=== PATIENT | female | born 1960 | race African-American/Black ===

== ENCOUNTER 2017-01-15 10:28 | Inpatient (IN) | payer OTHER, MEDICAID ==
[~2017-01-15] VITALS: Ht 167.6 cm; Wt 93.9 kg
[~2017-01-15 10:28] MED LIST: ATOR20TA PO; METO-539 PO
[2017-01-15] MEDS ORDERED: LABETALOL 5MG/ML SYR 20 MG/4 ML SYRINGE IV PRN (11:15)
[2017-01-15] MEDS ORDERED: ASPIRIN 325MG EC TABLET PO ONE (11:30)
[2017-01-15 11:35] LABS: EOSINOPHILS % 2.2 % (0.0-5.0); HEMATOCRIT. 41.4 % (36.0-48.0); LYMPHOCYTES % 38.4 % (20.0-50.0); MEAN CORPUSCULAR HEMOGLOBIN 29.1 pg (28.0-32.0); MONOCYTES % 10.9 % (2.0-8.0); NEUTROPHILS % 47.5 % (40.0-76.0); RED BLOOD CELL COUNT 4.82 mill/uL (4.2-5.4); RED CELL DISTRIBUTION WIDTH 15.2 % (11.6-14.6)
[2017-01-15 11:38] LABS: PROTHROMBIN TIME 10.2 sec
[2017-01-15 11:48] LABS: CARBON DIOXIDE 29 mEq/L (21-32); CHLORIDE 107 mEq/L (98-107); ETHANOL BLOOD < 10 mg/dL; TROPONIN I 0.06 ng/mL (0.00-0.04)
[2017-01-15 12:33] LABS: CLARITY URINE CLEAR (CLEAR); COLOR URINE YELLOW (YELLOW); KETONES URINE NEGATIVE (NEGATIVE); LEUKOCYTE ESTERASE URINE NEGATIVE (NEGATIVE); NITRITE URINE NEGATIVE (NEGATIVE); OCCULT BLOOD URINE NEGATIVE (NEGATIVE); PROTEIN URINE NEGATIVE (NEGATIVE); SPECIFIC GRAVITY URINE 1.015 (1.005-1.030)
[2017-01-15 12:49] LABS: *AMPHETAMINES SCREEN URINE NEGATIVE (NEGATIVE); *BARBITURATES SCREEN URINE NEGATIVE (NEGATIVE); *BENZODIAZEPINES SCREEN URINE NEGATIVE (NEGATIVE); *COCAINE SCREEN URINE NEGATIVE (NEGATIVE); CANNABINOID URINE SCREEN NEGATIVE (NEGATIVE); METHADONE URINE SCREEN NEGATIVE (NEGATIVE); OPIATES URINE SCREEN NEGATIVE (NEGATIVE); PHENCYCLIDINE URINE SCREEN NEGATIVE (NEGATIVE)
[2017-01-15 13:16] LABS: PLATELET 245 x1000/uL (130-400)
[2017-01-15] MEDS ORDERED: HYDRALAZINE 20MG/ML VIAL IV ONE (14:30)
[2017-01-15] MEDS ORDERED: DIOVAN PO (16:33)
[2017-01-15] MEDS ORDERED: HYDROXYZINE 25 MG/ML IM ONE (18:00)
[2017-01-15] MEDS ORDERED: CLONIDINE 0.1MG TABLET PO PRN (20:00)
[2017-01-15] MEDS ORDERED: CLONIDINE 0.1MG TABLET PO SCH (20:00)
[2017-01-15] MEDS: LOSARTAN POTASSIUM 50 MG TABLET PO SCH (20:52)
[2017-01-15] MEDS: ENOXAPARIN 30MG/0.3ML SYR SUBCUT SCH (20:53)
[2017-01-15] MEDS: METOPROLOL TARTRATE 100MG TABLET PO SCH (22:07)
[2017-01-15] MEDS ORDERED: HYDROCODONE/ACETAMINOPHEN 5/325MG TABLET PO PRN (22:15)
[2017-01-16] MEDS: LOSARTAN POTASSIUM 50 MG TABLET PO SCH (08:19)
[2017-01-16] MEDS: ENOXAPARIN 30MG/0.3ML SYR SUBCUT SCH (08:20)
[2017-01-16] MEDS: METOPROLOL TARTRATE 100MG TABLET PO SCH (08:20)
[2017-01-16 18:11] VITALS: BP 146/100
== END 2017-01-16 19:05 | disposition home or self-care (01) | DRG 199 ==
LOC: ER 11:37 → 5WST 13:58 → EDBEDREQ 14:01 → EDBEDREQSVC 14:01 → ENRESERV 14:11
PROVIDERS: ADMIT Internal Medicine Pulmonary Disease; ATTEND Internal Medicine Pulmonary Disease
DX: I16.9 Hypertensive crisis, unspecified (principal); I67.4 Hypertensive encephalopathy; I10 Essential (primary) hypertension; E66.9 Obesity, unspecified; F17.210 Nicotine dependence, cigarettes, uncomplicated; M19.90 Unspecified osteoarthritis, unspecified site; N63 Unspecified lump in breast; Z96.652 Presence of left artificial knee joint; Z79.899 Other long term (current) drug therapy; Z82.3 Family history of stroke; Z82.49 Family history of ischemic heart disease and other diseases of the circulatory system; Z91.19 Patient's noncompliance with other medical treatment and regimen; Z88.2 Allergy status to sulfonamides; Z88.8 Allergy status to other drugs, medicaments and biological substances; Z84.1 Family history of disorders of kidney and ureter; Z68.33 Body mass index [BMI] 33.0-33.9, adult
CPT/HCPCS: 36415; 70450; 71010; 80053; 80305; 81003; 83880; 84484; 85025; 85610; 93005; 96374; 99291; G0482; J0360; J1650; J3490

== ENCOUNTER 2017-10-08 19:42 | Inpatient (IN) | payer MEDICAID, OTHER ==
[~2017-10-08] VITALS: Ht 165.1 cm; Wt 96.6 kg
[~2017-10-08 19:42] MED LIST changes: -ATOR20TA PO
[2017-10-08] MEDS ORDERED: ACETAMINOPHEN 325MG TABLET PO STA (19:58)
[2017-10-08] MEDS ORDERED: LABETALOL HCL 20MG/4ML CARPUJECT IV ONE (20:00)
[2017-10-08 20:51] LABS: EOSINOPHILS % 3.2 % (0.0-5.0); HEMATOCRIT. 41.5 % (36.0-48.0); HEMOGLOBIN. 14.2 g/dL (12.0-16.0); LYMPHOCYTES % 42.5 % (20.0-50.0); MEAN CORPUSCULAR HEMOGLOBIN 29.6 pg (28.0-32.0); MEAN CORPUSCULAR VOLUME 86.3 fL (81.0-99.0); MEAN PLATELET VOLUME 7.9 fl (7.4-10.4); MONOCYTES % 9.1 % (2.0-8.0); NEUTROPHILS % 44.2 % (40.0-76.0); PLATELET 286 x1000/uL (130-400); RED CELL DISTRIBUTION WIDTH 15.5 % (11.6-14.6)
[2017-10-08 20:56] LABS: CHLORIDE 109 mEq/L (98-107)
[2017-10-08 20:59] LABS: ETHANOL BLOOD < 10 mg/dL
[2017-10-08 21:04] LABS: LDL CHOLESTEROL 134 mg/dL (5-100)
[2017-10-08] MEDS ORDERED: LABETALOL 5MG/ML SYR 20 MG/4 ML SYRINGE IV SCH (21:15)
[2017-10-08] MEDS ORDERED: NA PHOS,M-B/NA PHOS,DI-BA ENEMA 118ML PR PRN (22:30)
[2017-10-08] MEDS ORDERED: IPRATROPIUM/ALBUTEROL 0.5-3(2.5)MG/3ML NEB INH PRN (22:30)
[2017-10-08] MEDS ORDERED: METOPROLOL TARTRATE 25MG TABLET PO SCH (22:30)
[2017-10-08] MEDS ORDERED: DOCUSATE SODIUM 100MG CAPSULE PO PRN (22:30)
[2017-10-08] MEDS ORDERED: CLONIDINE 0.1MG TABLET PO PRN (22:30)
[2017-10-08] MEDS ORDERED: ACETAMINOPHEN 325MG TABLET PO PRN (22:30)
[2017-10-08] MEDS ORDERED: NITROGLYCERIN 0.4MG TABLET SL SL PRN (22:30)
[2017-10-08] MEDS ORDERED: ZOLPIDEM TARTRATE 5MG TABLET PO PRN (22:30)
[2017-10-08] MEDS ORDERED: GUAIFENESIN 200MG/10ML SUGAR FREE UDC PO PRN (22:30)
[2017-10-08] MEDS ORDERED: MAGNESIUM/ALUMINUM HYDROXIDE/SIMETHICONE 30ML UDC PO PRN (22:30)
[2017-10-08] MEDS ORDERED: ONDANSETRON HCL 4MG/2ML VIAL IV PRN (22:30)
[2017-10-08] MEDS ORDERED: AMLODIPINE 10MG TABLET PO SCH (22:30)
[2017-10-08] MEDS ORDERED: DIPHENHYDRAMINE 50MG/ML VIAL IV PRN (22:30)
[2017-10-08] MEDS ORDERED: LORAZEPAM 0.5MG TABLET PO PRN (22:30)
[2017-10-08] MEDS: KETOROLAC 15MG/ML VIAL IV PRN (23:15)
[2017-10-08 23:26] LABS: CLARITY URINE CLEAR (CLEAR); COLOR URINE YELLOW (YELLOW); KETONES URINE NEGATIVE (NEGATIVE); LEUKOCYTE ESTERASE URINE NEGATIVE (NEGATIVE); NITRITE URINE NEGATIVE (NEGATIVE); OCCULT BLOOD URINE NEGATIVE (NEGATIVE); PROTEIN URINE NEGATIVE (NEGATIVE); SPECIFIC GRAVITY URINE 1.014 (1.005-1.030); UROBILINOGEN URINE 0.2 E.U./dL (0.2-1.0)
[2017-10-08 23:38] LABS: *AMPHETAMINES SCREEN URINE NEGATIVE (NEGATIVE); *BARBITURATES SCREEN URINE NEGATIVE (NEGATIVE); *BENZODIAZEPINES SCREEN URINE NEGATIVE (NEGATIVE); *COCAINE SCREEN URINE NEGATIVE (NEGATIVE); CANNABINOID URINE SCREEN NEGATIVE (NEGATIVE); METHADONE URINE SCREEN NEGATIVE (NEGATIVE); OPIATES URINE SCREEN NEGATIVE (NEGATIVE); PHENCYCLIDINE URINE SCREEN NEGATIVE (NEGATIVE)
[2017-10-09 06:50] LABS: CREATINE KINASE MB FRACTION 1.1 ng/mL (0.5-3.6)
[2017-10-09 09:30] VITALS: BP 150/90
[2017-10-09] MEDS: ASPIRIN 325MG EC TABLET PO SCH (10:50)
[2017-10-09] MEDS: FAMOTIDINE 20MG/2ML VIAL IV SCH ×2 (10:50→21:24)
[2017-10-09] MEDS: ENOXAPARIN 30MG/0.3ML SYR SUBCUT SCH ×2 (10:51→22:41)
[2017-10-09] MEDS: HYDRALAZINE HCL 50MG TABLET PO SCH ×2 (13:01→22:39)
[2017-10-09] MEDS ORDERED: AMLO10TA4 PO (15:26)
[2017-10-09 16:07] LABS: CREATINE KINASE MB FRACTION 0.6 ng/mL (0.5-3.6)
[2017-10-09] MEDS: AMLODIPINE 10MG TABLET PO SCH (21:20)
[2017-10-09] MEDS: NICOTINE 14MG PATCH TD SCH (21:24)
[2017-10-09] MEDS: KETOROLAC 15MG/ML VIAL IV PRN (21:33)
[2017-10-09] MEDS: LISINOPRIL 20MG TABLET PO SCH (22:45)
[2017-10-10] VITALS: BP 129/70
[2017-10-10] MEDS: METOPROLOL TARTRATE 25MG TABLET PO SCH ×2 (00:23→11:43)
[2017-10-10 04:00] VITALS: BP 135/71
[2017-10-10] MEDS: HYDRALAZINE HCL 50MG TABLET PO SCH (06:04)
[2017-10-10 08:00] VITALS: BP 166/95
[2017-10-10] MEDS: LISINOPRIL 20MG TABLET PO SCH (08:32)
[2017-10-10] MEDS: AMLODIPINE 10MG TABLET PO SCH (08:32)
[2017-10-10] MEDS: ASPIRIN 325MG EC TABLET PO SCH (08:32)
[2017-10-10] MEDS: FAMOTIDINE 20MG/2ML VIAL IV SCH (08:32)
[2017-10-10] MEDS: NICOTINE 14MG PATCH TD SCH (09:41)
[2017-10-10] MEDS: ENOXAPARIN 30MG/0.3ML SYR SUBCUT SCH (09:46)
[2017-10-10 12:00] VITALS: BP 130/72
[2017-10-10 12:15] VITALS: BP 130/72
== END 2017-10-10 13:03 | disposition home or self-care (01) | DRG 199 ==
LOC: ER 19:42 → 5WST 21:47 → EDBEDREQ 21:48 → ENRESERV 10-09 08:28
PROVIDERS: ADMIT Internal Medicine; ATTEND Internal Medicine
DX: I16.1 Hypertensive emergency (principal); I10 Essential (primary) hypertension; Z96.659 Presence of unspecified artificial knee joint; Z82.3 Family history of stroke; Z82.49 Family history of ischemic heart disease and other diseases of the circulatory system; Z88.2 Allergy status to sulfonamides; Z91.14 Patient's other noncompliance with medication regimen
CPT/HCPCS: 36415; 70450; 71045; 80053; 80061; 80305; 81003; 82550; 82553; 82962; 83036; 83721; 83880; 84484; 85025; 85610; 93005; 93970; 96374; 96375; 99291; G0482; J1650; J1885; J3490

== ENCOUNTER 2017-11-28 11:05 | Emergency (ER) | payer MEDICAID ==
[~2017-11-28] VITALS: Ht 167.6 cm; Wt 86.0 kg
[~2017-11-28 11:05] MED LIST changes: +AMLO10TA4 PO
[2017-11-28 11:18] VITALS: BP 179/87
== END 2017-11-28 13:06 | disposition home or self-care (01) ==
LOC: ER 11:50
DX: S63.619A Unspecified sprain of unspecified finger, initial encounter (principal); F17.200 Nicotine dependence, unspecified, uncomplicated; I10 Essential (primary) hypertension; Z88.2 Allergy status to sulfonamides; W19.XXXA Unspecified fall, initial encounter; Y93.89 Activity, other specified; Y92.89 Other specified places as the place of occurrence of the external cause; Y99.8 Other external cause status
CPT/HCPCS: 29130; 73130; 99284

== ENCOUNTER 2023-11-07 11:36 | Emergency (ER) | payer MEDICAID, BC ==
[~2023-11-07] VITALS: Ht 165.1 cm; Wt 100.0 kg
[~2023-11-07 11:36] MED LIST changes: +ACET-2708 MT; +HYDR-4001 PO
[2023-11-07 11:39] VITALS: TEMP 98.2; O2SAT 99
[2023-11-07 14:00] VITALS: BP 141/89; PULSE 76; RESP 16
== END 2023-11-07 14:32 | disposition home or self-care (01) ==
LOC: ER 11:36
DX: S92.512A Displaced fracture of proximal phalanx of left lesser toe(s), initial encounter for closed fracture (principal); I10 Essential (primary) hypertension; Z90.710 Acquired absence of both cervix and uterus; Z88.2 Allergy status to sulfonamides; X58.XXXA Exposure to other specified factors, initial encounter; Y93.89 Activity, other specified; Y92.89 Other specified places as the place of occurrence of the external cause; Y99.8 Other external cause status
CPT/HCPCS: 73610; 73630; 73660; 99284; Z7610